=== PATIENT | male | born 1985 | race Hispanic/Latino ===

== ENCOUNTER 2025-01-02 18:32 | Emergency (ER) | payer SELFPAY ==
[2025-01-02 19:21] LABS: Influenza A Ag Negative; Influenza B Ag Negative; SARS-CoV-2 Antigen Rapid Res Negative (Negative)
--- NOTE | 2025-01-02 19:27 | RAD REPORT ---
EXAMINATION: ONE VIEW CHEST XR CLINICAL INDICATION: Cough;Congestion TECHNIQUE: Frontal chest projection is submitted. Examination is limited by patient positioning and t echnique. COMPARISON: No prior exam. FINDINGS: The lungs are well inflated and clear. The heart is upper limit of normal in size. No displaced fract ures identified. IMPRESSION: No acute intrathoracic abnormalities.
--- NOTE | 2025-01-02 19:40 | ER ---
Nurse's Notes [facility] Name: Armand Harvey Age: 39 yrs Sex: Male : 1985 Arrival Date: 01/02/2025 Time: 18:32 Bed 13 Private MD: Diagnosis: Cough;Fever, unspecified Presentation: 01/02 18:51 Chief complaint: Patient states: cough, congestion, sore throat, fever x 4 days. Rec'd me1 a penicillin shot 2 days ago. Bilateral watery eyes with pus that started this afternoon. Coronavirus screen: Vaccine status: Patient reports being unvaccinated. Ebola Screen: No symptoms or risks identified at this time. Initial Sepsis Screen: Does the patient meet any 2 criteria? No. Patient's initial sepsis screen is negative. Does the patient have a suspected source of infection? No. Patient's initial sepsis screen is negative. Risk Assessment: Do you want to hurt yourself or someone else? Patient reports no desire to harm self or others. Onset of symptoms is unknown. 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 - Infectious Disease History:: Denies. - Social history:: Smoking status: Patient denies any tobacco usage or history of. Screenin:52 [facility] ED Fall Risk Assessment (Adult) History of falling in the last 3 months, ss12 including since admission No falls in past 3 months (0 pts) Confusion or Disorientation No (0 pts) Intoxicated or Sedated No (0 pts) Impaired Gait No (0 pts) Mobility Assist Device Used No (0 pt) Altered Elimination No (0 pt) Score/Fall Risk Level 0 - 2 = Low Risk Oriented to surroundings, Maintained a safe environment, Educated pt \T\ family on fall prevention, incl call for assistance when getting out of bed, Assessed \T\ reinforced patient's understanding of fall precautions, Provided non-skid footwear. Abuse screen: Denies threats or abuse. Denies injuries from another. Nutritional screening: No deficits noted. Tuberculosis screening: No symptoms or risk factors identified. Assessment: 19:30 General: Appears in no apparent distress. comfortable, Behavior is calm, cooperative, ss12 quiet. Pain: Denies pain. Neuro: No deficits noted. Level of Consciousness is awake, alert, obeys commands. Cardiovascular: No deficits noted. Patient's skin is warm and dry. Respiratory: Airway is patent Respiratory effort is even, unlabored, Respiratory pattern is regular, symmetrical. Respiratory: Breath sounds are clear bilaterally. GI: No deficits noted. No signs and/or symptoms were reported involving the gastrointestinal system. : No deficits noted. No signs and/or symptoms were reported regarding the genitourinary system. EENT: No deficits noted. No signs and/or symptoms were reported regarding the EENT system. Derm: No deficits noted. Skin is intact, Skin is dry, Skin is pink, warm \T\ dry. normal. Musculoskeletal: No deficits noted. No signs and/or symptoms reported regarding the musculoskeletal system. Vital Signs: 18:51 BP 147 / 89; Pulse 87; Resp 18; Temp 98.5; Pulse Ox 97% ; Weight 94.8 kg; Height 5 ft. me1 9 in. ; Pain 3/10; 19:45 BP 137 / 79; Pulse 77; Resp 16 S; Temp 98.5; Pulse Ox 97% on R/A; ss12 18:51 Body Mass Index 30.86 (94.80 kg, 175.26 cm) me1 18:51 Pain Scale: Adult me1 ED Course: 18:40 Patient arrived in ED. cj3 18:42 [facility]C [facility] 18:42 John Guevara MD is Attending Physician. dr5 18:54 Triage completed. me1 18:54 Arm band placed on Patient placed in waiting room. me1 18:55 COVID-19 Ag + Flu A+B Ag Sent. dr5 18:55 Group A Streptococcus Rapid Sent. dr5 19:19 Chest Single View XRAY In Process Unspecified. EDMS 19:28 Viviane Pan, RN is Primary Nurse. ss12 19:52 No provider procedures requiring assistance completed. ss12 19:53 Patient did not have IV access during this emergency room visit. ss12 19:53 Patient has correct armband on for positive identification. Provided Education on: plan ss12 of care. Administered Medications: No medications were administered Medication: 19:53 VIS not applicable for this client. ss12 Outcome: 19:40 Discharge ordered by . rosa maria 19:53 Discharged to home ambulatory, ss12 19:53 Condition: stable 19:53 Discharge instructions given to patient, family, Instructed on discharge instructions, follow up and referral plans. Demonstrated understanding of instructions, follow-up care, medications, Prescriptions given X 4, 19:55 Patient left the ED. 12 Signatures: Dispatcher [employer] EDBibi Walters, RN RN me1 Joshua Dugan, SHANKER OUT-C SHANKER OUT-Cdr5 Lashae Hamilton cj3 Vivaine Pan RN RN ss12 Corrections: (The following items were deleted from the chart) 18:55 18:54 PMHx: None; me1 me1
--- NOTE | 2025-01-02 19:40 | EDPHYS ---
Physician Documentation [facility] Name: Armand Harvey Age: 39 yrs Sex: Male : 1985 Arrival Date: 01/02/2025 Time: 18:32 Bed 13 Private MD: ED Physician John Guevara HPI: 01/02 20:15 This 39 yrs old Male presents to ER via Ambulatory with complaints of Fever, dr5 Cough, Congestion, Drainage From Eye. 20:15 Onset: The symptoms/episode began/occurred 2 day(s) ago. Patient is a 39-year-old male dr5 with history of hyperlipidemia coming in with 2 days of fever, cough, congestion. Patient also reports crusting and pain to right eye that starts morning. at bedside states that patient has been seen and was given steroid shot as well as Bicillin shot yesterday. Patient denies chest pain, shortness of breath, nausea, vomiting, diarrhea.. 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 - Infectious Disease History:: Denies. - Social history:: Smoking status: Patient denies any tobacco usage or history of. ROS: 20:15 Constitutional: as per hpi dr5 Exam: 20:15 Constitutional: This is a well developed, well nourished patient who is awake, alert, dr5 and in no acute distress. Head/Face: Normocephalic, atraumatic. Eyes: Pupils equal round and reactive to light, extra-ocular motions intact. Lids and lashes normal. Conjunctiva and sclera are non-icteric and not injected on left side and right eye has matting and eyelashes, reddened conjunctivo-, and purulent drainage in corner of eye.. Cornea within normal limits. Periorbital areas with no swelling, redness, or edema. Neck: Trachea midline, no thyromegaly or masses palpated, and no cervical lymphadenopathy. Supple, full range of motion without nuchal rigidity, or vertebral point tenderness. No Meningismus. Chest/axilla: Normal chest wall appearance and motion. Nontender with no deformity. No lesions are appreciated. Cardiovascular: Regular rate and rhythm with a normal S1 and S2. Normal PMI, no JVD. No pulse deficits. Respiratory: Lungs have equal breath sounds bilaterally, clear to auscultation. No rales, rhonchi or wheezes noted. No increased work of breathing, no retractions or nasal flaring. Back: No spinal tenderness. No costovertebral tenderness. Full range of motion. Skin: Warm, dry with normal turgor. Normal color with no rashes, no lesions, and no evidence of cellulitis. MS/ Extremity: Pulses equal, no cyanosis. Neurovascular intact. Full, normal range of motion. Neuro: Awake and alert, GCS 15, oriented to person, place, time, and situation. Cranial nerves II-XII grossly intact. Motor strength 5/5 in all extremities. Sensory grossly intact. Cerebellar exam normal. Normal gait. Vital Signs: 18:51 BP 147 / 89; Pulse 87; Resp 18; Temp 98.5; Pulse Ox 97% ; Weight 94.8 kg; Height 5 ft. me1 9 in. ; Pain 3/10; 19:45 BP 137 / 79; Pulse 77; Resp 16 S; Temp 98.5; Pulse Ox 97% on R/A; ss12 18:51 Body Mass Index 30.86 (94.80 kg, 175.26 cm) me1 18:51 Pain Scale: Adult me1 MDM: 18:42 Medical Screening Exam initiated dr5 20:15 Differential diagnosis: viral Infection, bacterial infection, URI, Pneumonia, dr5 conjunctivitis, strep, COVID, flu. Data reviewed: vital signs, nurses notes, lab test result(s), Flu: negative COVID-negative, strep negative, radiologic studies, plain films. Consideration of Admission/Observation Escalation of care including admission/observation considered. Escalation considered patient found to have pneumonia with hypoxia. I considered the following discharge prescriptions or medication management in the emergency department I discussed and recommended Over The Counter medications. Independent interpretation of the following test(s) in the Emergency Department X-Ray: My interpretation is Independent interpretation of x-ray does not reveal infiltrates. Historians other than the Patient: Spouse/Significant Other: . Care significantly affected by the following chronic conditions: Hyperlipidemia. Care significantly affected by the following Social Determinants of Health: Poor access to healthcare and/or lack of insurance, Poor access to transportation, Problems related to employment. Counseling: I had a detailed discussion with the patient and/or guardian regarding the historical points, exam findings, and any diagnostic results supporting the discharge/admit diagnosis, the presence of at least one elevated blood pressure reading (>120/80) during this emergency department visit, lab results, radiology results, the need for outpatient follow up, for definitive care, a family practitioner, to return to the emergency department if symptoms worsen or persist or if there are any questions or concerns that arise at home. Special discussion: I discussed with the patient/guardian in detail that at this point there is no indication for admission to the hospital. It is understood, however, that if the symptoms persist or worsen the patient needs to return immediately for re-evaluation. Based on the history and exam findings, there is no indication for further emergent testing or inpatient evaluation. I discussed with the patient/guardian the need to see the primary care provider for further evaluation of the symptoms. ED course: Will cover patient for cough and fever with azithromycin. Will give patient ofloxacin for conjunctivitis. Recommend increase hydration. Alternate Tylenol Motrin as needed for pain and fever. Explained viral infection is also self-limiting and will resolve in 7 to days. All questions were answered. Strict ER precautions given. 01/02 18:42 Order name: COVID-19 Ag + Flu A+B Ag; Complete Time: 19:40 dr5 01/02 18:42 Order name: Group A Streptococcus Rapid; Complete Time: 19:40 dr5 01/02 19:24 Order name: Throat Culture EDNE 01/02 18:42 Order name: Chest Single View XRAY; Complete Time: 19:40 dr5 Administered Medications: No medications were administered Disposition Summary: 01/02/25 19:40 Discharge Ordered Notes: Location: Home dr5 Condition: Stable dr5 Diagnosis - Cough dr5 - Fever, unspecified dr5 Followup: dr5 - With: Emergency Department - When: As needed - Reason: Worsening of condition Followup: dr5 - With: Private Physician - When: 1 - 2 days - Reason: Recheck today's complaints, Continuance of care, Re-evaluation by your physician Discharge Instructions: - Discharge Summary Sheet dr5 - Cough, Adult, [id number] dr5 Forms: - Medication Reconciliation Form dr5 - Antibiotic Education dr5 - Patient Portal Instructions dr5 - Leadership Thank You Letter dr5 Prescriptions: - Bromfed DM 2-30-10 mg/5 mL Oral syrup - administer 10 milliliter ORAL route every 6 hours as needed for cold symptoms; dr5 240 milliliter; Refills: 0, Product Selection Permitted - Ocuflox 0.3 % Ophthalmic drops - instill 2 drops OPHTHALMIC route every 6 hours for 7 days; 15 milliliter; dr5 Refills: 0, Product Selection Permitted - Zithromax Z-Flo 250 mg Oral Tablet - take 1 tablet ORAL route as directed for 5 days Day 1 - take two (2) tablets dr5 one time. Day 2, 3, 4 , 5 take one (1) tablet once daily.; 6 tablet; Refills: 0, Product Selection Permitted - Medrol (Flo) 4 mg Oral Tablets, Dose Pack - take 1 tablet ORAL route as directed - follow package instructions; 1 packet; dr5 Refills: 0, Product Selection Permitted Signatures: Dispatcher [employer] EDBibi Walters, RN RN me1 Joshua Dugan, SIDE DOOR MAN-C SIDE DOOR MAN-Cdr5 Corrections: (The following items were deleted from the chart) 18:42 18:42 COVID-19 Ag + Flu A+B Ag+I.LAB.BRZ ordered. EDMS EDMS 18:42 18:42 Group A Streptococcus Rapid Sc+I.LAB.BRZ ordered. EDMS EDMS 18:55 18:54 PMHx: None; me1 me1
[2025-01-03 00:36] VITALS: TEMP 98.5; O2SAT 97
[2025-01-03 00:38] VITALS: BP 137/79
== END 2025-01-02 19:55 | disposition home or self-care (01) ==
LOC: ER 18:32
DX: R05.9 Cough, unspecified (principal); R50.9 Fever, unspecified; Z11.52 Encounter for screening for COVID-19
CPT/HCPCS: 36415; 71045; 87070; 87428; 99283